=== PATIENT | female | born 1935 | race Two or more races ===

== ENCOUNTER 2018-09-12 15:30 | Inpatient (IN) | payer MEDICARE ==
[~2018-09-12] VITALS: Ht 157.5 cm; Wt 77.1 kg
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
[2018-09-12] MEDS ORDERED: Morphine Sulfate 4mg/ml Inj (IV USE ONLY) IVP ONE (15:45)
[2018-09-12] MEDS: Sodium Chloride 550 ML IV SCH ×2 (16:01→19:25)
--- NOTE | 2018-09-12 16:03 | NUR ---
ED Nurse Note: PT BROUGHT IN BY [id number] FROM HOME. AOX4. PT C/O RIGHT HIP PAIN, /, RADIATING TO RIGHT KNEE X 1 HOUR AGO AFTER FALL. PT DENIES HEAD TRAUMA OR LOC. ON ASSESSMENT, LIMITED ROM OF RIGHT LOWER EXTREMITY BUT FULL ROM OF DIGITS. NO OBVIOUS DEFORMITY NOTED. CIRCULATION AND SENSATION INTACT, CAP REFILL <3 SECONDS, MUSCLE STRENGTH 5/5 OF FOOT. SKIN CLEAN, DRY, AND INTACT.
[2018-09-12 16:05] VITALS: BP 165/98
--- NOTE | 2018-09-12 16:07 | NUR ---
ED Nurse Note: 15F MACIAS CATHETER INSERTED USING STERILE TECHNIQUE. CATHETER DRAINING CLEAR YELLOW URINE. PT TOLERATED WELL.
--- NOTE | 2018-09-12 16:14 | NUR ---
ED Nurse Note: RADIOLOGY CALLED FOR XRAY.
[2018-09-12 16:23] LABS: APPEARANCE,URINE CLEAR; BILIRUBIN, URINE NEGATIVE (NEGATIVE); COLOR,URINE PALE YELLOW; GLUCOSE, URINE (UA) NEGATIVE (NEGATIVE); KETONES,URINE NEGATIVE (NEGATIVE); LEUKOCYTE ESTERASE ,URINE 1+ (NEGATIVE); NITRITE,URINE NEGATIVE (NEGATIVE); PH,URINE 6.5 (4.5-8.0); PROTEIN,URINE NEGATIVE (NEGATIVE); UROBILINOGEN,URINE NORMAL MG/DL (0.0-1.0)
[2018-09-12 16:24] LABS: INR 0.9 (0.9-1.1)
[2018-09-12 16:29] LABS: EOSINOPHILS % (AUTO) 1.6 % (0.0-3.0); HEMATOCRIT 39.9 % (37.0-47.0); HEMOGLOBIN 13.6 G/DL (12.0-16.0); LYMPHOCYTES % (AUTO) 24.6 % (20.0-45.0); MEAN CORPUSCULAR VOLUME 92 FL (80-99); MONOCYTES % (AUTO) 6.4 % (1.0-10.0); NEUTROPHILS % (AUTO) 66.4 % (45.0-75.0); PLATELET COUNT 290 K/UL (150-450); RED BLOOD COUNT 4.33 M/UL (4.20-5.40); RED CELL DISTRIBUTION WIDTH 11.4 % (11.6-14.8); WHITE BLOOD COUNT 7.5 K/UL (4.8-10.8)
[2018-09-12 16:37] LABS: ALANINE AMINOTRANSFERASE 71 U/L (12-78); ALBUMIN 3.7 G/DL (3.4-5.0); ALBUMIN/GLOBULIN RATIO 0.8 (1.0-2.7); ALKALINE PHOSPHATASE 198 U/L (46-116); ANION GAP 10 mmol/L (5-15); ASPARTATE AMINO TRANSFERASE 64 U/L (15-37); BILIRUBIN,TOTAL 0.6 MG/DL (0.2-1.0); BLOOD UREA NITROGEN 13 mg/dL (7-18); CALCIUM 9.9 MG/DL (8.5-10.1); CARBON DIOXIDE 28 MMOL/L (21-32); CHLORIDE 106 MMOL/L (98-107); CREATININE 1.1 MG/DL (0.55-1.30); POTASSIUM 2.8 MMOL/L (3.5-5.1); SODIUM 144 MMOL/L (136-145)
--- NOTE | 2018-09-12 16:45 | NUR ---
ED Nurse Note: PT TO CT VIA PETER.
[2018-09-12] MEDS ORDERED: NS w/KCl 40mEq 1,000 ML IV SCH (17:00)
--- NOTE | 2018-09-12 17:00 | NUR ---
ED Nurse Note: RUTHANN: [phone] ADONIS: [phone]
--- NOTE | 2018-09-12 17:04 | NUR ---
ED Nurse Note: PT BACK FROM CT VIA PETER.
[2018-09-12 17:47] VITALS: BP 162/78
--- NOTE | 2018-09-12 17:48 | NUR ---
ED Nurse Note: [facility] CALLED FOR PT REPORT. REPORT GIVEN TO LATRELL MUJICA.
[2018-09-12] MEDS ORDERED: UNOBMED (17:49)
--- NOTE | 2018-09-12 17:58 | NUR ---
ED Nurse Note: PT TAKEN UP TO [facility] VIA GURNEY WITH ALL BELONGINGS ACCOMPANIED BY [employer] PROFESSIONAL. VSS.
[2018-09-12 18:29] VITALS: BP 178/99
--- NOTE | 2018-09-12 18:37 | NUR ---
NURSE NOTES: Received pt from ED @ 1815. pt awake, A/O x 4, complained of right leg pain, 6. pt does not have home medication list. Elavated BP , medicated before transfer. Skin intact, bruise on right hip. IVF. sifuentes in place, draining clear yellow urine. belongings at bedside, cane within reach. bed alarm on. calll light within reach. Will continue to monitor.
[2018-09-12 20:00] VITALS: BP 157/97
--- NOTE | 2018-09-12 20:00 | NUR ---
NURSE NOTES: Received pt. from LATRELL Funes. No acute distress noted. Respiration even and non labored on room air. No sob noted. IV line patent and intact. Bed in lowest position, wheels locked and alarm on. All needs attended and met. Will continue plan of care.
[2018-09-12] MEDS ORDERED: Levofloxacin 500mg tab ORAL SCH (20:30)
[2018-09-12] MEDS ORDERED: Zolpidem 5mg tab ORAL PRN (20:30)
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
[2018-09-12] MEDS: Zolpidem 5mg tab ORAL PRN (21:44)
[2018-09-12] MEDS: Heparin 5000 units/ml inj SUBQ SCH (21:45)
[2018-09-13] VITALS: BP 139/86
[2018-09-13 04:00] VITALS: BP 140/83
--- NOTE | 2018-09-13 07:11 | NUR ---
CASE MANAGEMENT:REVIEW 82 YR OLD FEMALE BIBA FROM HOME CC: S/P FALL. HIP PAIN SI: RT HIP AND PELVIC FRACTURE HYPOKALEMIA. UTI 97.9 100 18 182/84 97% ON RA k-2.8 IS: 500CC NS BOLUS IV ZOFRAN IV MORPHINE IVF+KCL K-DUR PO CHEST XRAY XRAY HIP : TO MED/SURG UNIT 4 EAST INTERQUAL CRITERIA MET
--- NOTE | 2018-09-13 07:35 | NUR ---
HAND-OFF: Report given to LATRELL Zarco.
[2018-09-13 08:00] VITALS: BP 142/79
--- NOTE | 2018-09-13 08:23 | NUR ---
NURSE NOTES: Handoff received from LATRELL Parham.
--- NOTE | 2018-09-13 08:29 | General Progress Note ---
Assessment/Plan Problem List: (1) Contusion, hip ICD Codes: S70.00XA - Contusion of unspecified hip, initial encounter SNOMED: 31869807 (2) Hip fracture ICD Codes: S72.009A - Fracture of unspecified part of neck of unspecified femur , initial encounter for closed fracture SNOMED: 810228022 Qualifiers: Qualified Codes: S72.001A - Fracture of unspecified part of neck of right femur, initial encounter for closed fracture (3) UTI (urinary tract infection) ICD Codes: N39.0 - Urinary tract infection, site not specified SNOMED: 96323265 Qualifiers: Qualified Codes: N30.00 - Acute cystitis without hematuria (4) Tremor ICD Codes: R25.1 - Tremor, unspecified SNOMED: 21784018 (5) Pelvic fracture ICD Codes: S32.9XXA - Fracture of unspecified parts of lumbosacral spine and pelvis, initial encounter for closed fracture SNOMED: 08968523 Qualifiers: Qualified Codes: S32.89XA - Fracture of other parts of pelvis, initial encounter for closed fracture (6) Hypokalemia ICD Codes: E87.6 - Hypokalemia SNOMED: 58034089 Status: stable Assessment/Plan: ortho follow up likely nonsurgical rx pain control follow up labs pt/ot will need snf Subjective ROS Limited/Unobtainable: No Constitutional: Reports: malaise, weakness HEENT: Reports: no symptoms Cardiovascular: Reports: no symptoms Respiratory: Reports: no symptoms Gastrointestinal/Abdominal: Reports: no symptoms Genitourinary: Reports: no symptoms Neurologic/Psychiatric: Reports: no symptoms Endocrine: Reports: no symptoms Hematologic/Lymphatic: Reports: no symptoms Allergies: Coded Allergies: No Known Allergies (Unverified , 09/12/18) All Systems: reviewed and negative except above Subjective c/o left hip pain. no other new complaints. Objective Last 24 Hour Vital Signs Date Time Temp Pulse Resp B/P (MAP) Pulse Ox O2 Delivery O2 Flow Rate FiO2 09/13/18 04:00 98.4 81 16 140/83 (102) 94 09/13/18 00:00 98.7 85 18 139/86 (103) 96 09/12/18 20:00 98.9 90 18 157/97 (117) 94 09/12/18 18:29 98.2 178/99 (125) 94 09/12/18 17:58 98.3 83 15 168/73 9 Room Air 09/12/18 17:54 86 163/78 09/12/18 17:47 98.2 84 16 162/78 100 Room Air 09/12/18 16:05 86 22 Room Air 09/12/18 16:05 98.1 86 22 165/98 98 Room Air 09/12/18 15:25 97.9 100 18 182/84 (116) 97 Intake and Output 09/12/18 09/13/18 19:00 07:00 Intake Total 95.83 ml Balance 95.83 ml Intake IV Total 95.83 ml Laboratory Tests 09/12/18 15:45: White Blood Count 7.5, Red Blood Count 4.33, Hemoglobin 13.6, Hematocrit 39.9, Mean Corpuscular Volume 92, Mean Corpuscular Hemoglobin 31.4H, Mean Corpuscular Hemoglobin Concent 34.1, Red Cell Distribution Width 11.4L, Platelet Count 290, Mean Platelet Volume 5.9L, Neutrophils (%) (Auto) 66.4, Lymphocytes (%) (Auto) 24.6, Monocytes (%) (Auto) 6.4, Eosinophils (%) (Auto) 1.6, Basophils (%) (Auto ) 1.0, Prothrombin Time 10.0, Prothromb Time International Ratio 0.9, Activated Partial Thromboplast Time 29, Sodium Level 144, Potassium Level 2.8L, Chloride Level 106, Carbon Dioxide Level 28, Anion Gap 10, Blood Urea Nitrogen 13, Creatinine 1.1, Estimat Glomerular Filtration Rate , Glucose Level 163H, Calcium Level 9.9, Total Bilirubin 0.6, Aspartate Amino Transf (AST/SGOT) 64H, Alanine Aminotransferase (ALT/SGPT) 71, Alkaline Phosphatase 198H, Total Protein 8.5H, Albumin 3.7, Globulin 4.8, Albumin/Globulin Ratio 0.8L 09/12/18 16:08: Urine Color Pale yellow, Urine Appearance Clear, Urine pH 6.5, Urine Specific [place] 1.005, Urine Protein Negative, Urine Glucose (UA) Negative, Urine Ketones Negative, Urine Blood 1+H, Urine Nitrite Negative, Urine Bilirubin Negative, Urine Urobilinogen Normal, Urine Leukocyte Esterase 1+H, Urine RBC 0-2 , Urine WBC 5-10H, Urine Squamous Epithelial Cells ModerateH, Urine Bacteria Few Height (Feet): 5 Height (Inches): 2.00 Weight (Pounds): 170 General Appearance: WD/WN, alert Neck: supple Cardiovascular: regular rhythm Respiratory/Chest: chest wall non-tender, lungs clear, normal breath sounds Abdomen: normal bowel sounds, non tender, soft, no organomegaly Edema: no edema noted Arm (L), no edema noted Arm (R), no edema noted Leg (L), no edema noted Leg (R), no edema noted Pedal (L), no edema noted Pedal (R), no edema noted Generalized Jony Montes De Oca MD Sep 13, 2018 08:29
--- NOTE | 2018-09-13 08:41 | Consultation ---
Consult Note Consult Note Patient seen/evaluated. Right pubic rami fx. Start PT, WBAT No surgery is necessary. Follow up with me in 4 weeks. Khoi Moise MD Sep 13, 2018 08:41
--- NOTE | 2018-09-13 08:43 | Diagnostic Imaging Report ---
Indication: Pain, trauma, status post fall Technique: Noncontrast spiral acquisitions obtained through the pelvis and right hip Multiplanar reconstructions were generated. Total dose length product 346.1 mGycm. CTDIvol(s) 12.51 mGy. Radiation dose was minimized using automated exposure control Comparison: none Findings: Hardware is demonstrated producing old healed right hip intertrochanteric fracture. The hardware appears intact. There is a multi partite fracture deformity of the right inferior pubic ramus and a fracture deformity of the right superior pubic ramus. Is mostly manifest as buckling of the cortices without a discrete fracture line demonstrated, but no callus formation is demonstrated. There is also suggestion of a fracture line through the anterior pillar of the acetabulum. No femur fracture demonstrated. No other acute fractures. There are degenerative changes of the lumbosacral junction. There is a Gonzales catheter within the bladder. Gas within the bladder lumen is presumably related to the Gonzales catheterization. There is mild distention of the rectum by feces. There is colonic diverticulosis. No evidence of diverticulitis. Impression: Fracture deformities of the right superior and inferior pubic rami, suspect acute. Correlate with clinical findings Nondisplaced anterior column acetabular fracture Evidence of prior right hip surgery Gonzales catheter. Gas within the bladder lumen presumably related to such Colonic diverticulosis. Degenerative spondylosis Possible minimal rectal fecal impaction This agrees with the preliminary interpretation provided overnight by [facility] teleradiology service. The CT scanner at [facility] is accredited by the [employer] and the scans are performed using protocols designed to limit radiation exposure to as low as reasonably achievable to attain images of sufficient resolution adequate for diagnostic evaluation.
[2018-09-13] MEDS: Lisinopril 10mg tab ORAL SCH (09:15)
[2018-09-13] MEDS: Heparin 5000 units/ml inj SUBQ SCH ×2 (09:18→20:34)
[2018-09-13 10:11] LABS: ALANINE AMINOTRANSFERASE 49 U/L (12-78); ALBUMIN 2.9 G/DL (3.4-5.0); ALBUMIN/GLOBULIN RATIO 0.7 (1.0-2.7); ALKALINE PHOSPHATASE 156 U/L (46-116); ANION GAP 7 mmol/L (5-15); ASPARTATE AMINO TRANSFERASE 41 U/L (15-37); BILIRUBIN,TOTAL 0.4 MG/DL (0.2-1.0); BLOOD UREA NITROGEN 9 mg/dL (7-18); CALCIUM 9.1 MG/DL (8.5-10.1); CARBON DIOXIDE 28 MMOL/L (21-32); CHLORIDE 107 MMOL/L (98-107); POTASSIUM 3.8 MMOL/L (3.5-5.1); SODIUM 142 MMOL/L (136-145)
[2018-09-13] MEDS: Morphine Sulfate 2mg/ml Inj(IV/IM USE ONLY) IVP PRN ×3 (10:26→19:49)
--- NOTE | 2018-09-13 11:37 | Diagnostic Imaging Report ---
Indication: Reason For Exam: TRAUMA Technique: One view of the chest Comparison: Reference made to subsequent CT scan Findings: Surgical hardware is seen reducing old healed right hip intertrochanteric fracture. Hardware appears intact. Fracture the right superior and inferior pubic rami are demonstrated. Acetabular fracture demonstrated on subsequent CT is not radiographically evident. There is a Gonzales catheter in place Impression: Positive for right superior and inferior pubic rami fractures Note that acetabular fracture described on subsequent CT scan is not radiographically evident Evidence of prior right hip trauma and surgery
[2018-09-13 12:00] VITALS: BP 135/82
--- NOTE | 2018-09-13 12:10 | Diagnostic Imaging Report ---
Indication: Chest pain Technique: One view of the chest Comparison: none Findings: Lungs and pleural spaces are clear. Heart size is normal. Aorta is tortuous and calcified. Calcified granulomatous node projects to the right of the trachea Impression: No acute process Evidence of old granulomatous disease
--- NOTE | 2018-09-13 13:29 | NUR ---
P.T Note:late entry 1145 P.T evaluation completed and treatment initiated. Please refer to P.T evaluation for current functional status. Pt is alert, O x 4 , pleasant and cooperative. Pt reports c/o severe pain of the R hip aggravated by movement initiation resulting to decreased mobility tolerance and independence and safety. Pt premedicated prior to P.T evaluation. Pt currently require MOD A X 1 and extended time to initiate and complete supine to/from sitting and sit to/from standing transitions. Pt was only able to take 2-3 tiny steps using the the FWW with MOD A X 1. Pt not able to advance RLE and bear Wt due to severe R hip pain. Skilled P.T service is warranted to improve her strength ,activity tolerance as well as her mobility independence and safety. Recommend SNF for short term rehab VS home with P.T as patient is home alone. Also recommend FWW and bedside commode in the the room. thank you for this referral.
--- NOTE | 2018-09-13 14:45 | Consultation ---
DATE OF CONSULTATION: 09/13/2018 ORTHOPEDIC CONSULTATION CONSULTING PHYSICIAN: Khoi Mendez M.D. REQUESTING PHYSICIAN: Jony Montes De Oca M.D. REASON FOR CONSULTATION: Right-sided pelvic fracture. BRIEF HISTORY: The patient is a pleasant 82-year-old female with history of hypertension and depression, with history of right hip fracture, status post short nail and screw fixation, who sustained a mechanical fall and was seen in the ER. CT scan of the hip and pelvis showed inferior pubic rami fracture. There was question anterior column fracture, although it is not clear if she has pubic rami fracture extends into the anterior column. PAST MEDICAL HISTORY: As above. PAST SURGICAL HISTORY: As above. MEDICATIONS: Chart reviewed and reconciled. ALLERGIES: No known drug allergies. FAMILY HISTORY: Noncontributory. SOCIAL HISTORY: She does not smoke or drink. REVIEW OF SYSTEMS: Noncontributory. PHYSICAL EXAMINATION: GENERAL: Examination of the patient today reveals she is a very pleasant lady. EXTREMITIES: Examination of the right hip reveals she has got good range of motion. She does have some pain with abduction and external rotation. She has got some tenderness over the pubic rami. Hip range of motion does not cause significant pain. DIAGNOSTIC DATA: X-rays of the hip and pelvis are reviewed. There is evidence of femoral neck fractures, which has been treated with a short cephalomedullary nail with hip screw. There is evidence of a possible inferior pubic rami fracture. CT scan of the hip and pelvis are reviewed. There may be a nondisplaced superior as well as inferior pubic rami fracture. The anterior column fracture does not appear to be obvious or displaced. IMPRESSION: 1. Right hip superior and inferior pubic rami fracture acute. 2. History of right hip fracture treated with cephalomedullary quynh with hip screw. PLAN: At this time, I had discussion with the patient and explained to her my findings. At this time, she should be started on physical therapy with range of motion, stretching, strengthening, size. I am happy there is no surgical intervention as necessary. She can be weightbearing as tolerated. I will be happy to see her back in about four weeks time in my office for re-x-rays. All questions were answered. Khoi Sherman Mendez DR: TRIPP JOB#: [id number] CC:
[2018-09-13 16:00] VITALS: BP 145/79
--- NOTE | 2018-09-13 16:03 | NUR ---
NURSE NOTES: Patient has order for 1mg morphine IVP, pulled 2mg from Pyxis, 1mg IVP administered. Remaining 1mg of morphine wasted with second RN. Pharmacist notified.
--- NOTE | 2018-09-13 19:15 | NUR ---
NURSE NOTES: Received report from Carolee/Gurvinder RN. Patient is laying on the bed, self-positioned and HOB elevated. Patient is breathing unlabored and evenly without signs of distress, discomfort, or SOB noted. No pain noted at this time. Patient is alert, awake, and verbally responsive to let her needs known. Patient's bed is placed at the lowest level with alarm, brake, and side rails up x2 for safety measures. Patient has 16 F patent, running urine. Patient has RAC 20 g IV running NS at 50 cc/hr. Call light is placed within reach. Will continue to monitor and provide care as ordered.
--- NOTE | 2018-09-13 19:21 | NUR ---
HAND-OFF: Report given to LATRELL Byrne.
[2018-09-13 20:00] VITALS: BP 150/87
[2018-09-13] MEDS: Zolpidem 5mg tab ORAL PRN (20:29)
[2018-09-14] VITALS (7 sets, daily range): BP systolic 130–160; BP diastolic 78–88
--- NOTE | 2018-09-14 07:29 | NUR ---
HAND-OFF: Report given to LATRELL Del Valle. Patient in stable condition.
--- NOTE | 2018-09-14 07:39 | NUR ---
NURSE NOTES: Patient received in stable condition, alert and oriented, Estonian speaking. Breathing observed to be unlabored on room air, no signs of SOB or pain noted. IV site on right arm patent and intact, running 50cc/hr. Gonzales catheter is intact. Bed locked in lowest position, call light placed within reach. Will continue to monitor.
[2018-09-14] MEDS: Lisinopril 10mg tab ORAL SCH (09:28)
[2018-09-14] MEDS: Heparin 5000 units/ml inj SUBQ SCH ×2 (09:33→20:27)
--- NOTE | 2018-09-14 09:39 | General Progress Note ---
Assessment/Plan Problem List: (1) Contusion, hip ICD Codes: S70.00XA - Contusion of unspecified hip, initial encounter SNOMED: 77308093 (2) Hip fracture ICD Codes: S72.009A - Fracture of unspecified part of neck of unspecified femur , initial encounter for closed fracture SNOMED: 467643131 Qualifiers: Qualified Codes: S72.001A - Fracture of unspecified part of neck of right femur, initial encounter for closed fracture (3) UTI (urinary tract infection) ICD Codes: N39.0 - Urinary tract infection, site not specified SNOMED: 62951043 Qualifiers: Qualified Codes: N30.00 - Acute cystitis without hematuria (4) Tremor ICD Codes: R25.1 - Tremor, unspecified SNOMED: 51804656 (5) Pelvic fracture ICD Codes: S32.9XXA - Fracture of unspecified parts of lumbosacral spine and pelvis, initial encounter for closed fracture SNOMED: 23167425 Qualifiers: Qualified Codes: S32.89XA - Fracture of other parts of pelvis, initial encounter for closed fracture (6) Hypokalemia ICD Codes: E87.6 - Hypokalemia SNOMED: 18054493 Status: stable Assessment/Plan: likely nonsurgical rx pain control follow up labs pt/ot will need snf Subjective ROS Limited/Unobtainable: No Constitutional: Reports: malaise, weakness HEENT: Reports: no symptoms Cardiovascular: Reports: no symptoms Respiratory: Reports: no symptoms Gastrointestinal/Abdominal: Reports: no symptoms Genitourinary: Reports: no symptoms Neurologic/Psychiatric: Reports: no symptoms Endocrine: Reports: no symptoms Hematologic/Lymphatic: Reports: no symptoms Allergies: Coded Allergies: No Known Allergies (Unverified , 09/12/18) All Systems: reviewed and negative except above Subjective c/o pelvis and hip pain. ortho noted. no surgery needed. Objective Last 24 Hour Vital Signs Date Time Temp Pulse Resp B/P (MAP) Pulse Ox O2 Delivery O2 Flow Rate FiO2 09/14/18 09:28 158/86 09/14/18 04:00 97.7 65 20 158/86 (110) 94 09/14/18 00:00 98.7 70 20 153/87 (109) 94 09/13/18 21:00 Room Air 09/13/18 20:00 99.0 72 20 150/87 (108) 95 09/13/18 16:00 97.8 68 19 145/79 (101) 96 09/13/18 12:00 98.6 83 18 135/82 (99) 97 Intake and Output 09/13/18 09/14/18 19:00 07:00 Intake Total 360 ml 519.2 ml Output Total 1200 ml 1000 ml Balance -840 ml -480.8 ml Intake Oral 360 ml IV Total 519.2 ml Output Urine Total 1200 ml 1000 ml # Bowel Movements 1 Laboratory Tests 09/13/18 09:45: Sodium Level 142, Potassium Level 3.8, Chloride Level 107, Carbon Dioxide Level 28, Anion Gap 7, Blood Urea Nitrogen 9, Creatinine 1.0, Estimat Glomerular Filtration Rate , Glucose Level 121H, Calcium Level 9.1, Total Bilirubin 0.4, Aspartate Amino Transf (AST/SGOT) 41H, Alanine Aminotransferase (ALT/SGPT) 49, Alkaline Phosphatase 156H, Total Protein 7.1, Albumin 2.9L, Globulin 4.2, Albumin/Globulin Ratio 0.7L Height (Feet): 5 Height (Inches): 2.00 Weight (Pounds): 170 General Appearance: WD/WN, alert Neck: supple Cardiovascular: normal rate Respiratory/Chest: chest wall non-tender, lungs clear, normal breath sounds Abdomen: normal bowel sounds, non tender, soft, no organomegaly Edema: no edema noted Arm (L), no edema noted Arm (R), no edema noted Leg (L), no edema noted Leg (R), no edema noted Pedal (L), no edema noted Pedal (R), no edema noted Generalized Jony Montes De Oca MD Sep 14, 2018 09:39
--- NOTE | 2018-09-14 10:00 | NUR ---
Social Service Note NAGA spoke with Wendy Ricketts [phone] and Frank Bryson [phone] to complete home safety evaluation. 50 years ago Wendy sponsored patient to the from [place]. All patient's family lives in [place] and Wendy has left them a message regarding recent hospitalization. Wendy and Frank moved to [place] a year ago and don't visit patient often since their move. Previously they lived in the same apartment complex. Wendy's dgt visits patient about once a week. Wendy makes follow up appointments for patient and helps manage her affairs from [place]. Wendy and Frank have been in contact with patient's PCP Dr. Jed Valerio and Ortho Dr. Garcia. Frank has spoken Opal at [facility] [phone] (P) [phone] (F) and is requesting patient to transfer to this facility upon discharge. NAGA informed Dr. Montes De Oca. Referral faxed. Family also requested referral to be faxed to [facility] [phone] (P) [phone] (F). Wendy will discuss with family about bringing patient back to [place] as it may not be appropriate for patient to return home. Will monitor and follow up. Discussed with CM.
--- NOTE | 2018-09-14 10:11 | NUR ---
DISCHARGE PLANNING CLINICALS HAVE BEEN FAXED TO [facility] T: [phone] F: [phone]
[2018-09-14] MEDS: Morphine Sulfate 2mg/ml Inj(IV/IM USE ONLY) IVP PRN (10:27)
--- NOTE | 2018-09-14 15:29 | NUR ---
Social Service Note CRI will require further documentation to show patient is able to ambulate 10 feet and is progressing with physical therapy. [facility] will not accept at this time. Dr. Montes De Oca and CM notified.
--- NOTE | 2018-09-14 19:38 | NUR ---
HAND-OFF: Report given to Joao SAMS.
--- NOTE | 2018-09-14 19:39 | NUR ---
NURSE NOTES: Received patient in no apparent distress. A&OX3. IV site patent and intact. Gonzales cath draining well by gravity, yellow urine noted. Bed in lowest position. Call light within reach. Will continue to monitor.
[2018-09-14] MEDS: Zolpidem 5mg tab ORAL PRN (20:26)
[2018-09-15] VITALS: BP 155/73
[2018-09-15 04:00] VITALS: BP 139/78
--- NOTE | 2018-09-15 07:30 | NUR ---
HAND-OFF: Report given to Shiloh SAMS.
--- NOTE | 2018-09-15 07:30 | NUR ---
NURSE NOTES: Received pt from [facility]. Pt is alert and orient x4. pt is in RA, No SOB or acute respiratory distress noted. pt has intact iv access RFA 22g is running well. pt is eating breakfast independently. All needs attended, bed is locked and is in the lowest position. call light within easy reach. will continue to monitor.
[2018-09-15 08:00] VITALS: BP 149/71
[2018-09-15] MEDS ORDERED: CLONIDINE0.1 MG ORAL (08:08)
[2018-09-15] MEDS ORDERED: HEPARIN SO5000 UNIT2 SUBQ (08:08)
[2018-09-15] MEDS ORDERED: ZESTRIL10 M1 ORAL (08:08)
--- NOTE | 2018-09-15 08:30 | Discharge Summary ---
DATE OF ADMISSION: 09/12/2018 DATE OF DISCHARGE: 09/15/2018 ADMITTING DIAGNOSIS: Fall and pelvic fracture. DISCHARGE DIAGNOSIS: Fall and pelvic fracture. HOSPITAL COURSE: The patient is a pleasant female, who sustained a mechanical fall. She presented to the emergency room, because of intractable pain. She was diagnosed with a pelvic fracture. Orthopedics consultation was obtained and no surgical intervention was recommended. The patient was recommended to go to rehabilitation. She will be discharged either to acute rehabilitation or to correction facility for continued rehabilitation. Plan of care was discussed with the patient and she is in agreement. DIET: Regular diet. ACTIVITIES: Ad-gasper. Jony Montes De Oca M.D. DR: PIA JOB#: [id number] CC:
--- NOTE | 2018-09-15 08:58 | NUR ---
DISCHARGE PLAN DISCHARGE SOON PLACEMENT HAS BEEN VERIFIED [facility] HAS DECLINED TO ACCEPT [facility] CAN ACCEPT ONLY IF SHE IS WALKING AT LEAST 10FT FAXED CLINICALS TO [facility] AND [facility]
[2018-09-15] MEDS ORDERED: Lisinopril 10mg tab ORAL SCH (09:00)
[2018-09-15] MEDS: Heparin 5000 units/ml inj SUBQ SCH (09:30)
--- NOTE | 2018-09-15 10:46 | NUR ---
DISCHARGE PLANNED SEE DISCHARGE PLANNING INTERVENTION FOR NOTES
[2018-09-15 12:00] VITALS: BP 144/76
--- NOTE | 2018-09-15 13:11 | NUR ---
DISCHARGE/CHANGE OF PLANS PATIENT'S SPONSOR IS HERE AND STOPPED TRANSFER TO [facility] PATIENT IS NOW GOING TO [facility] [address] T: [phone] FOR NURSE TO NURSE REPORT [facility] WILL COME BACK AT 14[address] TO [address] WILSON HAS BEEN UPDATED
--- NOTE | 2018-09-15 15:53 | NUR ---
NURSE NOTES: pt has D/C order. all D/C assessments and instructions done and pt verbally confirmed to understand all. pt is stable. V/S stable. Gonzales cath D/C as order. iv access D/C . Legal guardian RUTHANN JOHNSON is aware about D/C. SKIN IS INTACT only bruises on the R hip due to fell befors D/C. ALL BELONGING ARE WITH PT. [facility] Pt left hospital with accompany of ambulance personnel.
--- NOTE | 2018-09-17 14:48 | Cardiology Report ---
APPROVED REPORT EXAM: Two-dimensional and M-mode echocardiogram with Doppler and color Doppler. INDICATION Hypertensive heart dis M-Mode DIMENSIONS IVSd1.2 (0.7-1.1cm)Left Atrium (MM)3.7 (1.6-4.0cm) LVDd4.5 (3.5-5.6cm)Aortic Root3.7 (2.0-3.7cm) PWd0.8 (0.7-1.1cm)Aortic Cusp Exc.1.6 (1.5-2.0cm) IVSs1.6 cm LVDs2.7 (2.5-4.0cm) PWs1.2 cm Technically difficult study due to poor acoustical windows. Normal left ventricular chamber size, systolic function and wall motion to extent visualized. Left ventricular ejection fraction estimated to be 55-60 %. Study quality precludes accurate assessment of regional wall motion. No evidence of left ventricular hypertrophy. No evidence of pericardial effusion. All other cardiac chamber sizes are within normal limits. Focal aortic valve sclerosis with adequate cusp excursion. Thickened mitral valve leaflets with normal excursion. Mitral annulus and aortic root calcification. Pulmonic valve not well visualized. Normal tricuspid valve structure. IVC at normal size with physiologic collapse. A color flow and spectral Doppler study was performed and revealed: Mild aortic regurgitation. Trace mitral regurgitation. Mitral diastolic velocities suggest reduced left ventricular relaxation c/w mild LV diastolic dysfunction (Grade I ). Trace tricuspid regurgitation. Tricuspid systolic velocities suggests peak right ventricular systolic pressure of 13 mmHg.
--- NOTE | 2018-09-17 16:09 | Cardiology Report ---
APPROVED REPORT EKG Measurement Heart [id number] MD [id number] Normal sinus rhythm Left anterior fascicular block Minimal voltage criteria for LVH, may be normal variant Possible Lateral infarct, age undetermined Abnormal ECG
--- NOTE | 2018-09-17 16:12 | Cardiology Report ---
APPROVED REPORT EKG Measurement Heart [id number] CO [id number] Normal sinus rhythm Left axis deviation Possible Lateral infarct, age undetermined Abnormal ECG
== END 2018-09-15 16:00 | DRG 536 ==
LOC: EDBD 15:30 → EMR 15:51 → 4E 16:08 → EDBEDREQ 17:24 → 4E 09-13 10:00
DX: S32.511A Fracture of superior rim of right pubis, initial encounter for closed fracture (principal); N39.0 Urinary tract infection, site not specified; S32.591A Other specified fracture of right pubis, initial encounter for closed fracture; S70.01XA Contusion of right hip, initial encounter; W19.XXXA Unspecified fall, initial encounter; R25.1 Tremor, unspecified; E87.6 Hypokalemia; I10 Essential (primary) hypertension; F32.9 Major depressive disorder, single episode, unspecified
CPT/HCPCS: 36415; 51702; 71045; 80053; 81001; 85025; 85610; 85730; 86850; 86900; 86901; 93005; 93306; 96374; 96375; 99285; J2405; J8499